=== PATIENT | female | born 1990 | race Caucasian/White ===

== ENCOUNTER 2018-02-27 11:55 | Emergency (ER) | payer MEDICAID ==
--- NOTE | 2018-02-27 13:00 | EDPHY ---
H & P Time Seen by Provider: 02/27/18 12:35 HPI/ROS: CHIEF COMPLAINT: Right lower dental pain HISTORY OF PRESENT ILLNESS: Patient here with chronic right lower dental pain. She currently does completed the course of amoxicillin with mild improvement of pain. She has scheduled to see her dentist in 5 days. She is requesting removal of the infected right lower molar. She denies any fever chills or trouble swallowing or breathing. ROS As detailed in HPI Smoking Status: Never smoked Physical Exam: General: Alert and oriented. Nontoxic appearing. No acute distress HEENT: Pupils PERRLA. No oral lesions. Diffuse dental decay. No gingival erythema or drainable abscess. Cardiopulmonary: Regular rate and rhythm. No lower extremity edema Skin: [place] warm and dry. No lesions. Muscle skeletal: Moving all 4 extremities. Equal strength in upper extremities and lower extremities. Ambulatory. Constitutional: Initial Vital Signs Temperature (C) 36.6 C 02/27/18 12:23 Heart Rate 74 02/27/18 12:23 Respiratory Rate 16 02/27/18 12:23 Blood Pressure 111/83 H 02/27/18 12:23 O2 Sat (%) 94 02/27/18 12:23 O2 Delivery Mode Room Air Allergies/Adverse Reactions: No Known Allergies Allergy (Verified 02/27/18 12:26) Home Medications: Medication Instructions Recorded Amoxicillin/Clavulanate Pot 875 mg PO BID #14 tab 02/27/18 [Augmentin 875 MG TAB (*)] Levothyroxine 02/27/18 Tramadol HCl 50 mg PO Q6 #12 tablet 02/27/18 Unk Abx For Tooth Infx 02/27/18 Medical Decision Making ED Course/Re-evaluation: Patient here with dental infection treated with amoxicillin previously. We will try Augmentin and given upon small amount of pain medication which she can take until she follows up with her dentist on Thursday. Differential Diagnosis: Mitchel's angina, dental abscess, osteomyelitis, facial cellulitis Departure - Departure Disposition: Home, Routine, Self-Care Clinical Impression: Dental decay Condition: Good Instructions: Amoxicillin/Clavulanate Potassium (By mouth), Tramadol (By mouth) , Dental Abscess (ED) Referrals: NONE *PRIMARY CARE P,. [Primary Care Provider] - As per Instructions [facility],. [Clinic] - As per Instructions Prescriptions: Amoxicillin/Clavulanate Pot [Augmentin 875 MG TAB (*)] 875 mg PO BID #14 tab Tramadol HCl 50 mg PO Q6 #12 tablet
[2018-02-27 13:07] VITALS: BP 114/75
== END 2018-02-27 13:17 | disposition home or self-care (01) ==
DX: K02.9 Dental caries, unspecified (principal)